=== PATIENT | male | born 1995 | race Two or more races ===

== ENCOUNTER 2024-06-02 03:30 | Emergency (ER) | payer MEDICAID ==
[~2024-06-02] VITALS: Ht 160 cm; Wt 76.0 kg
--- NOTE | 2024-06-02 03:54 | ED.PDOC ---
History of Present Illness HPI Comments 29-year-old male presents with a chief complaint of chest pain. Patient states that his chest pain is localized to his sternal region, radiates to his back. Patient mentions that he has been doing methamphetamine since 05/30/2024 and about an hour ago took a "blue pill and some powder that I was told was Percocet and Cocaine". Patient reports that he is also having lower leg weakness bilaterally. No other symptoms or modifying factors present at this time. Time Seen by MD: 03:50 Reviewed Notes: Medications, Allergies Allergies: Coded Allergies: Peanut Oil (Verified Allergy, Severe, 06/02/24) Peanut-containing Drug Products (Verified Allergy, Severe, 06/02/24) Information Source: Patient Mode of Arrival: Ambulatory Severity: Moderate Timing: Minutes Duration: Since onset Prehospital treatment: None Vital Signs Vital Signs Date Time Temp Pulse Resp B/P (MAP) Pulse Ox O2 Delivery O2 Flow Rate FiO2 06/02/24 04:41 124 06/02/24 04:01 97.7 16 140/99 (113) 99 Past Medical History PAST MEDICAL HISTORY: Denies Surgical History: Denies all surgeries Family History Family History: Reviewed,noncontributory to illness Social History Smoker: Non-Smoker Alcohol: Denies ETOH Use Drugs: Cocaine, Marijuana, Methamphetamine Lives In: Home Was a procedure done? Was a procedure done?: No EKG EKG : Pulse Rate (adult): 136 [place]: Normal Cardiac Rhythm: ST Block: None Hypertrophy: None ST: Normal X-Ray, Labs, Meds, VS Vital Signs Date Time Temp Pulse Resp B/P (MAP) Pulse Ox O2 Delivery O2 Flow Rate FiO2 06/02/24 04:41 124 06/02/24 04:01 97.7 123 16 140/99 (113) 99 06/02/24 03:54 136 06/02/24 03:45 136 Lab Test 06/02/24 04:47 06/02/24 03:55 Range/Units Troponin I High Sensitivity 13 12 </=54 ng/L White Blood Count 10.7 4.4-10.8 10^3/uL Red Blood Count 6.12 H 4.5-5.90 10^6/uL Hemoglobin 17.8 H 13.5-17.5 g/dL Hematocrit 52.6 41.0-53.0 % Mean Corpuscular Volume 85.9 80.0-100.0 fL Mean Corpuscular Hemoglobin 29.1 28.0-32.0 pg Mean Corpuscular Hemoglobin Concent 33.9 32.0-36.0 g/dL Red Cell Distribution Width 14.8 H 11.8-14.3 % Platelet Count 336 140-450 10^3/uL Mean Platelet Volume 8.3 6.9-10.8 fL Neutrophils (%) (Auto) 74.5 37.0-80.0 % Lymphocytes (%) (Auto) 16.5 10.0-50.0 % Monocytes (%) (Auto) 8.4 0.0-12.0 % Eosinophils (%) (Auto) 0.2 0.0-7.0 % Basophils (%) (Auto) 0.4 0.0-2.0 % Neutrophils # (Auto) 8.0 1.6-8.6 10 ^3/uL Lymphocytes # (Auto) 1.8 0.4-5.4 10 ^3/uL Monocytes # (Auto) 0.9 0-1.3 10 ^3/uL Eosinophils # (Auto) 0 0-0.8 10 ^3/uL Basophils # (Auto) 0 0-0.2 10 ^3/uL Nucleated Red Blood Cells 0.1 % Sodium Level 137 136-145 mmol/L Potassium Level 3.4 L 3.5-5.1 mmol/L Chloride Level 102 98-107 mmol/L Carbon Dioxide Level 19 L 20-31 mmol/L Anion Gap 16 H 5-15 Blood Urea Nitrogen 19 9-23 mg/dL Creatinine 1.06 0.700-1.30 mg/dL Glomerular Filtration Rate Calc 97 >90 mL/min BUN/Creatinine Ratio 17.9 10.0-20.0 Serum Glucose 109 H 74-106 mg/dL Calcium Level 10.9 H 8.7-10.4 mg/dL Total Bilirubin 1.4 H 0.2-1.0 mg/dL Aspartate Amino Transferase (AST) 81 H 13-40 U/L Alanine Aminotransferase (ALT) 83 H 7-40 U/L Alkaline Phosphatase 105 46-116 U/L B-Type Natriuretic Peptide 3.39 0-100 pg/mL Total Protein 8.9 H 5.7-8.2 g/dL Albumin 5.8 H 3.2-4.8 g/dL Lipase 36 12-53 U/L Plasma/Serum Blood Alcohol < 3.0 <10 mg/dL Current Medications Medications (Trade) Dose Ordered Sig/Natasha Route Start Time Stop Time Status Last Admin Sodium Chloride 1,000 ml @ 1,000 mls/hr Q1H ONCE IV 06/02/24 04:00 06/02/24 04:59 DC 06/02/24 05:19 Time of 1ST Reevaluation: 04:20 Reevaluation 1ST: Unchanged Patient Education/Counseling: Diagnosis, Treatment, Prognosis Family Education/Counseling: No Family Present Departure 1 Departure Time of Disposition: 06:12 Impression: Primary Impression: Thoracic back pain Additional Impressions: Elevated liver enzymes Polysubstance abuse Additional Instructions: ED DISCHARGE INSTRUCTIONS Instructions: Please read all instructions provided in this packet carefully. Although you have been discharged from the Emergency Department, this does not mean that you have a "clean bill of health". No definitive diagnosis for your symptoms has been made today. It is possible that you are in the process of developing a serious illness. This is why you must return to the ED without fail if any new or worsening symptoms (especially if your symptoms include chest pain, trouble breathing, abdominal pain, fever, headache, confusion, trouble seeing, or trouble walking) Avoid methamphetamine, cocaine, opiates and alcohol. Call to schedule an appointment with a new primary care provider. [phone] Dr. Ashley Hughes or Dr. Iron Goel It is also very important that you see a primary care doctor within the next 1-3 days to follow up. If you are unable to get an appointment, return to the ED for re-evaluation CHEST PAIN EDUCATION There are many things that can cause chest pain. Some are not serious and will get better on their own in a few days. But some kinds of chest pain need more testing and treatment. Your doctor may have recommended a follow-up visit in the next few days. If you are not getting better, you may need more tests or treatment. Even though your doctor has released you, you still need to watch for any problems. The doctor carefully checked you, but sometimes problems can develop later. If you have new symptoms or if your symptoms do not get better, get medical care right away. If you have worse or different chest pain or pressure that lasts more than 5 minutes or you passed out (lost consciousness), call 911 or seek other emergency help right away. A medical visit is only one step in your treatment. Even if you feel better, you still need to do what your doctor recommends, such as going to all suggested follow-up appointments and taking medicines exactly as directed. This will help you recover and help prevent future problems. How can you care for yourself at home? Rest until you feel better. Take your medicine exactly as prescribed. Call your doctor if you think you are having a problem with your medicine. Do not drive after taking a prescription pain medicine. When should you call for help? Call 911 if: You passed out (lost consciousness). You have severe difficulty breathing. You have symptoms of a heart attack. These may include: Chest pain or pressure, or a strange feeling in your chest. Sweating. Shortness of breath. Nausea or vomiting. Pain, pressure, or a strange feeling in your back, neck, jaw, or upper belly or in one or both shoulders or arms. Lightheadedness or sudden weakness. A fast or irregular heartbeat. After you call 911, the dough mixer operator may tell you to chew 1 adult-strength or 2 to 4 low-dose aspirin. Wait for an ambulance. Do not try to drive yourself. Call your doctor now or seek immediate medical care if: You have any trouble breathing. You have new or different chest pain. You are dizzy or lightheaded, or you feel like you may faint. Watch closely for changes in your health, and be sure to contact your doctor if you do not get better as expected. Current as of: January 30, 2024 Author: Haylee JobConvoALEJANDRA Staff? LIVER FUNCTION TESTS EDUCATION: What does it mean to have elevated liver enzymes? If you have high levels of liver enzymes in your blood, you have elevated liver enzymes. High liver enzyme levels may be temporary, or they may be a sign of a medical condition like hepatitis or liver disease. Certain medications can also cause elevated liver enzymes. What are liver enzymes? Liver enzymes are proteins that speed up chemical reactions in your body. These chemical reactions include producing bile and substances that help your blood clot, breaking down food and toxins, and fighting infection. Common liver enzymes include: Alkaline phosphatase (ALP). Alanine transaminase (ALT). Aspartate transaminase (AST). Gamma-glutamyl transferase (GGT). If your liver is injured, it releases enzymes into your bloodstream (most commonly ALT or AST). Why does a healthcare provider check liver enzymes? Your healthcare provider may check your liver enzyme levels with a liver function test (LFT) or liver panel. A liver function test is a type of blood test. Your provider may order an LFT during a regular checkup if youre at risk for liver injury or disease or if you have symptoms of liver damage. Possible Causes What causes elevated liver enzymes? Liver diseases, medical conditions, medications and infections can cause elevated liver enzymes. What are the risk factors for elevated liver enzymes? Factors that put you at risk for elevated liver enzymes include: Alcohol use. Certain medications, herbs and vitamin supplements. Diabetes. Family history of liver disease. Hepatitis or exposure to hepatitis. What are the symptoms of elevated liver enzymes? Most people with elevated liver enzymes dont have symptoms. If liver damage is the cause of elevated liver enzymes, you may have symptoms such as: Abdominal (stomach) pain. Dark urine (pee). Fatigue (feeling tired). Itching. Jaundice (yellowing of your skin or eyes). Light-colored stools (poop). Loss of appetite. Nausea and vomiting. Care and Treatment Elevated liver enzymes have a variety of causes, including liver disease and medication. Elevated liver enzymes may also be temporary. If your blood test shows high levels of liver enzymes, talk with your provider. Theyll work to figure out the cause. (From [facility]) Comments Patient reports feeling improved, back to baseline. No further chest pain or upper back pain. Critical Care Note Critical Care Time?: No Stability Stability form required: No I personally scribed for MARSHA SCHMIDT MD ([email or web address]) on 06/02/24 at 03:54. Electronically submitted by Nemesio Victoria ([email or web address]). MARSHA SCHMIDT MD Jun 02, 2024 03:54
[2024-06-02 04:22] LABS: Basophils # (auto) 0 10 ^3/uL (0-0.2); Basophils % (auto) 0.4 % (0.0-2.0); Eosinophils # (auto) 0 10 ^3/uL (0-0.8); Eosinophils % (auto) 0.2 % (0.0-7.0); Lymphocytes # (auto) 1.8 10 ^3/uL (0.4-5.4); Mean Corpuscular Volume 85.9 fL (80.0-100.0); Platelet Count (auto) 336 10^3/uL (140-450); Red Cell Distribution Width 14.8 % (11.8-14.3)
[2024-06-02 04:24] LABS: Hematocrit 52.6 % (41.0-53.0); Hemoglobin 17.8 g/dL (13.5-17.5); Lymphocytes % (auto) 16.5 % (10.0-50.0); Mean Corpuscular Hemoglobin 29.1 pg (28.0-32.0); Mean Corpuscular Hgb Conc. 33.9 g/dL (32.0-36.0); Monocytes # (auto) 0.9 10 ^3/uL (0-1.3); Monocytes % (auto) 8.4 % (0.0-12.0); Neutrophils % (auto) 74.5 % (37.0-80.0); Nucleated Red Blood Cells % 0.1 %; Red Blood Cells 6.12 10^6/uL (4.5-5.90); White Blood Cell 10.7 10^3/uL (4.4-10.8)
[2024-06-02 04:41] LABS: Alkaline Phosphatase 105 U/L (46-116); Anion Gap 16 (5-15); BUN/Creatinine Ratio 17.9 (10.0-20.0); Blood Urea Nitrogen 19 mg/dL (9-23); Chloride 102 mmol/L (98-107); Lipase 36 U/L (12-53); Sodium 137 mmol/L (136-145)
--- NOTE | 2024-06-02 04:42 | ECG ---
[facility] Test Date: 2024-06-02 Test Time: 04:41:26 Pat Name: ERIK RASCON Department: ED Room: Gender: M [place]: : 1995 Requested By: MARSHA SCHMIDT Order Number: [id number] Reading MD: Tray Rascon Measurements Intervals [place] Rate: 124 P: 68 W[place]: 146 QRS: 76 QRSD: 73 T: 0 QT: 294 QTc: 423 Interpretive Statements Sinus tachycardia Electronically Signed On 06-04-2024 16:12:48 PST by Tray Rascon Please click the below link to view image of tracing.
[2024-06-02 04:47] LABS: Alanine Aminotransferase 83 U/L (7-40); Albumin 5.8 g/dL (3.2-4.8); Aspartate Aminotransferase 81 U/L (13-40); Bilirubin, Total 1.4 mg/dL (0.2-1.0); Calcium 10.9 mg/dL (8.7-10.4); Carbon Dioxide 19 mmol/L (20-31); Glucose 109 mg/dL (74-106); Potassium 3.4 mmol/L (3.5-5.1); Total Protein 8.9 g/dL (5.7-8.2)
[2024-06-02] MEDS: IOHEXOL 350 MG/ML 100ML IJ ONE (04:59)
[2024-06-02 05:02] LABS: Blood Alcohol < 3.0 mg/dL (<10)
[2024-06-02] MEDS ORDERED: POTASSIUM CHL 20MEQ/100ML 100 ML IV ONE (05:15)
[2024-06-02] MEDS: LORazepam 2MG/ML-1ML VIAL IV ONE (05:19)
[2024-06-02] MEDS: SODIUM CHLORIDE 0.9% 1,000 ML IV ONE (05:19)
--- NOTE | 2024-06-02 05:47 | DVH ---
INDICATION: Rule out aortic dissection TECHNIQUE: Multidetector CTA of the chest was performed of the chest with 100 cc of omnipaque 350 int ravenous contrast. PULMONARY ANGIOGRAPHY PROTOCOL was utilized using a bolus-tracking technique cente red on the main pulmonary artery. Coronal and sagittal multiplanar and MIP reformats were performed. Radiation Dose Information: CT Dose: CTDI volume is 12.58 mGy. Dose-length product is 466.97 mGy*cm The dose indicators for CT are the volume Computed Tomography (CT) Dose Index (CTDIvol) and the Dose Length Product (DLP), and are measured in units of mGy and mGy-cm, respectively. These indicators are not patient dose, but values generated from the CT scanner acquisition factors. The report includes radiation exposure data for exposures received during this examination. Findings: Pulmonary artery: Normal caliber of the pulmonary artery. There is linear streak artifact from motio n of the contrast bolus in the superior vena cava limiting evaluation. No central, lobar or segmental pulmonary embolism. Lower neck: Normal thyroid. Lungs: No focal consolidation, pulmonary mass, or suspicious pulmonary nodule. Pleura: No pleural effusion or significant pneumothorax. Central airways: Patent. Esophagus: Unremarkable. Heart/Vascular Structures: Normal heart size. Normal caliber and enhancement of the aorta. Lymph Nodes: No adenopathy Musculoskeletal: No acute osseous abnormality. Upper abdomen: Limited portions of the upper abdomen are unremarkable. IMPRESSION: 1. No thoracic aortic dissection or pulmonary embolism. 2. No acute intrathoracic abnormality.
[2024-06-02] MEDS: POTASSIUM CHL 20 Meq TABLET PO ONE (06:03)
[2024-06-02 06:24] VITALS: BP 140/99; PULSE 115; RESP 18; TEMP 97.9; O2SAT 99
--- NOTE | 2024-06-04 10:37 | ECG ---
[facility] Test Date: 2024-06-02 Test Time: 03:45:28 Pat Name: ERIK RASCON Department: ED Room: Gender: M Dressmaker Garment Fitter: : 1995 Requested By: MARSHA SCHMIDT Order Number: [id number] Reading MD: Tray Rascon Measurements Intervals [place] Rate: 136 P: 77 DC: 129 QRS: 89 QRSD: 79 T: -7 QT: 299 QTc: 450 Interpretive Statements Sinus tachycardia Borderline T abnormalities, inferior leads Borderline ST elevation, lateral leads Electronically Signed On 06-04-2024 16:12:47 PST by Tray Rascon Please click the below link to view image of tracing.
== END 2024-06-02 06:25 | disposition home or self-care (01) ==
LOC: ER 03:30
DX: M54.6 Pain in thoracic spine (principal); R74.8 Abnormal levels of other serum enzymes; R06.02 Shortness of breath; F19.10 Other psychoactive substance abuse, uncomplicated; Z91.010 Allergy to peanuts; Z88.8 Allergy status to other drugs, medicaments and biological substances
CPT/HCPCS: 36415; 71275; 80053; 80320; 83690; 83880; 84484; 85025; 93005; 96360; 99285; J7030; Q9967

== ENCOUNTER 2024-07-24 13:29 | Emergency (ER) | payer MEDICAID ==
[~2024-07-24] VITALS: Ht 162.6 cm; Wt 77.2 kg
[2024-07-24 13:48] VITALS: BP 130/52; PULSE 80; RESP 20; O2SAT 94
--- NOTE | 2024-07-24 13:59 | ED.PDOC ---
GI ASSESSMENT HPI Comments 29y who presents to the ED for chief complaint of abdominal pain. Pt states he has been having epigastric abdominal pain for the past 3 days. Pt states the pain is non-radiating, constant, achy in nature, with no associated exacerbating or relieving factors. Pt has associated nausea and vomiting but otherwise denies diarrhea, fever, cough, chills, headache or dizziness. Pt otherwise states he ate cup noodles and states he has been having symptoms since. Pt has noted history of marijuana, meth and cocaine use. Pt otherwise denies any other symptoms at this time. Chief Complaint: Abdominal Pain Time Seen by MD: 13:56 Reviewed Notes: Nurses Notes, Medications, Allergies (See list ) Allergies: Coded Allergies: Peanut Oil (Verified Allergy, Severe, 06/02/24) Peanut-containing Drug Products (Verified Allergy, Severe, 06/02/24) Information Source: Patient Mode of Arrival: Ambulatory Brought in by: self Timing: Hours, Days Duration: Since onset Prehospital treatment: None Quality: Aching Vomitus: Food Particles Stool: Normal Severity: Moderate Recent: Possible spoiled food Recent Hx of: None Pain Location: Epigastric Modifying Factors: Food Associated sign and symptoms: Nausea, Vomiting Past Medical History PAST MEDICAL HISTORY: Denies Surgical History: Denies all surgeries Family History Family History: Reviewed,noncontributory to illness Social History Smoker: Non-Smoker Alcohol: Denies ETOH Use Drugs: Cocaine, Marijuana, Methamphetamine Lives In: Home Constitutional: denies: chills, diaphoresis, fatigue, fever, malaise, sweats, weakness, others EENTM: denies: blurred vision, double vision, ear bleeding, ear discharge, ear drainage, ear pain, ear ringing, eye pain, eye redness, hearing loss, mouth pain, mouth swelling, nasal discharge, nose bleeding, nose congestion, nose pain, photophobia, tearing, throat pain, throat swelling, voice changes, others Respiratory: denies: cough, hemoptysis, orthopnea, SOB at rest, shortness of b reath, SOB with excertion, stridor, wheezing, others Cardiovascular: denies: chest pain, dizzy spells, diaphoresis, Dyspnea on exertion, edema, irregular heart beat, left arm pain, lightheadedness, palpitations, PND, syncope, others Gastrointestinal: reports: abdominal pain, nausea, vomiting; denies: abdomen distended, blood streaked bowels, constipated, diarrhea, dysphagia, difficulty swallowing, hematemesis, melena, poor appetite, poor fluid intake, rectal bleeding, rectal pain, others Genitourinary: denies: burning, dysuria, flank pain, frequency, hematuria, incontinence, penile discharge, penile sore, pain, testicle pain, testicle swelling, urgency, others Neurological: denies: dizziness, fainting, headache, left sided numbness, left sided weakness, numbness, paresthesia, pre-existing deficit, right sided numbness, right sided weakness, seizure, speech problems, tingling, tremors, weakness, others Musculoskeletal: denies: back pain, gout, joint pain, joint swelling, muscle pain, muscle stiffness, neck pain, others Integumetry: denies: bruises, change in color, change in hair/nails, dryness, laceration, lesions, lumps, rash, wounds, others Allergic/Immunocompromised: denies: Difficulty Healing, Frequent Infections, Hives, Itching, others Hematologic/Lymphatic: denies: anemia, blood clots, easy bleeding, easy bruising, swollen glands, others Endocrine: denies: excessive hunger, excessive sweating, excessive thirst, excessive urination, flushing, intolerance to cold, intolerance to heat, unexplained weight gain, unexplained weight loss, others Psychiatric: denies: anxiety, bipolar disorder, depression, hopeless, panic disorder, schizophrenia, sleepless, suicidal, others All Other Systems: Reviewed and Negative Physical Exam General Appearance: Mild Distress HEENT: Normal ENT Inspection, Pharynx Normal, TMs Normal Neck: Full Range of Motion, Non-Tender, Normal, Normal Inspection Respiratory: Chest Non-Tender, Lungs Clear, No Accessory Muscle Use, No Respiratory Distress, Normal Breath Sounds Cardiovascular: No Edema, No JVD, No Murmur, No Gallop, Normal Peripheral Pulses, Regular Rate/Rhythm Breast Exam: Deferred Gastrointestinal: Epigastric, No Organomegaly, No Pulsatile Mass, Normal Bowel Sounds, Soft, Tenderness Genitalia: Deferred Pelvic: Deferred Rectal: Deferred Extremities: No calf tenderness, Normal capillary refill, Normal inspection, Normal range of motion, Non-tender, No pedal edema Musculoskeletal : Apperance: Normal Neurologic: Alert, shoemaking finisher II-XII nml as Tested, No Motor Deficits, Normal Affect, Normal Mood, No Sensory Deficits Cerebellar Function: Normal Reflexes: Normal Skin: Dry, Normal Color, Warm Lymphatic: No Adenopathy Was a procedure done? Was a procedure done?: No GI differential Dx Differential Diagnosis: Gastritis/PUD, Gastroenteritis, Electrolyte Imbalance, Food Poisoning, Bacterial, Viral Other Differential Diagnosis drug use, cyclic vomiting syndrome, X-Ray, Labs, Meds, VS Vital Signs Date Time Temp Pulse Resp B/P (MAP) Pulse Ox O2 Delivery O2 Flow Rate FiO2 07/24/24 13:48 97.4 80 20 130/52 (78) 94 Lab Test 07/24/24 14:08 Range/Units White Blood Count 9.0 4.4-10.8 10^3/uL Red Blood Count 5.30 4.5-5.90 10^6/uL Hemoglobin 15.3 13.5-17.5 g/dL Hematocrit 44.4 41.0-53.0 % Mean Corpuscular Volume 83.9 80.0-100.0 fL Mean Corpuscular Hemoglobin 29.0 28.0-32.0 pg Mean Corpuscular Hemoglobin Concent 34.5 32.0-36.0 g/dL Red Cell Distribution Width 13.6 11.8-14.3 % Platelet Count 285 140-450 10^3/uL Mean Platelet Volume 8.9 6.9-10.8 fL Neutrophils (%) (Auto) 45.4 37.0-80.0 % Lymphocytes (%) (Auto) 43.9 10.0-50.0 % Monocytes (%) (Auto) 7.8 0.0-12.0 % Eosinophils (%) (Auto) 2.2 0.0-7.0 % Basophils (%) (Auto) 0.7 0.0-2.0 % Neutrophils # (Auto) 4.1 1.6-8.6 10 ^3/uL Lymphocytes # (Auto) 4.0 0.4-5.4 10 ^3/uL Monocytes # (Auto) 0.7 0-1.3 10 ^3/uL Eosinophils # (Auto) 0.2 0-0.8 10 ^3/uL Basophils # (Auto) 0.1 0-0.2 10 ^3/uL Nucleated Red Blood Cells 0.1 % Sodium Level 145 136-145 mmol/L Potassium Level 3.5 3.5-5.1 mmol/L Chloride Level 108 H 98-107 mmol/L Carbon Dioxide Level 29 20-31 mmol/L Anion Gap 8 5-15 Blood Urea Nitrogen 10 9-23 mg/dL Creatinine 0.85 0.700-1.30 mg/dL Glomerular Filtration Rate Calc 121 >90 mL/min BUN/Creatinine Ratio 11.8 10.0-20.0 Serum Glucose 90 74-106 mg/dL Calcium Level 9.1 8.7-10.4 mg/dL Total Bilirubin 0.4 0.2-1.0 mg/dL Aspartate Amino Transferase (AST) 24 13-40 U/L Alanine Aminotransferase (ALT) 56 H 7-40 U/L Alkaline Phosphatase 83 46-116 U/L Total Protein 7.2 5.7-8.2 g/dL Albumin 4.7 3.2-4.8 g/dL Lipase 45 12-53 U/L The CBC is within normal limits The chemistry panel is within normal limits We did order the urine test but the patient has now eloped from the department's before given the urine We suspect that the patient may have been using marijuana and it was causing his symptoms but unfortunately the patient did not give us a urine sample so the patient has been eloped Time of 1ST Reevaluation: 14:30 Reevaluation 1ST: Unchanged Patient Education/Counseling: Diagnosis, Treatment, Prognosis, Need For Follow Up Family Education/Counseling: No Family Present Departure 1 Departure Time of Disposition: 16:35 Impression: Primary Impression: Polysubstance abuse Additional Impressions: Acute vomiting Gastritis Qualified Codes: K29.00 - Acute gastritis without bleeding Disposition: 01 HOME / SELF CARE / HOMELESS Condition: Fair Critical Care Note Critical Care Time?: No Stability Stability form required: No Heart Score Heart Score: Heart Score Response (Comments) Value History N/A 0 EKG N/A 0 Age N/A 0 Risk Factors N/A 0 Troponin N/A 0 Total 0 I personally scribed for GARRY GARNER MD ([email or web address]) on 07/24/24 at 13:59. Electronically submitted by Miguelina Lainez ([email or web address]). GARRY GARNER MD Jul 24, 2024 13:59
[2024-07-24] MEDS ORDERED: SODIUM CHLORIDE 0.9% 1,000 ML IVB ONE (14:00)
[2024-07-24] MEDS ORDERED: PANTOPRAZOLE 40 MG/10 ML VIAL INJ IV ONE (14:00)
[2024-07-24] MEDS ORDERED: PROCHLORPERAZINE EDISYLATE 5 MG/ML 2ML VIAL IV ONE (14:00)
[2024-07-24 14:20] LABS: Basophils # (auto) 0.1 10 ^3/uL (0-0.2); Basophils % (auto) 0.7 % (0.0-2.0); Eosinophils # (auto) 0.2 10 ^3/uL (0-0.8); Eosinophils % (auto) 2.2 % (0.0-7.0); Hematocrit 44.4 % (41.0-53.0); Hemoglobin 15.3 g/dL (13.5-17.5); Lymphocytes % (auto) 43.9 % (10.0-50.0); Mean Corpuscular Hgb Conc. 34.5 g/dL (32.0-36.0); Mean Corpuscular Volume 83.9 fL (80.0-100.0); Monocytes # (auto) 0.7 10 ^3/uL (0-1.3); Monocytes % (auto) 7.8 % (0.0-12.0); Neutrophils # (auto) 4.1 10 ^3/uL (1.6-8.6); Neutrophils % (auto) 45.4 % (37.0-80.0); Nucleated Red Blood Cells % 0.1 %; Platelet Count (auto) 285 10^3/uL (140-450); Red Cell Distribution Width 13.6 % (11.8-14.3)
[2024-07-24 14:39] LABS: Albumin 4.7 g/dL (3.2-4.8); Alkaline Phosphatase 83 U/L (46-116); Anion Gap 8 (5-15); Aspartate Aminotransferase 24 U/L (13-40); BUN/Creatinine Ratio 11.8 (10.0-20.0); Bilirubin, Total 0.4 mg/dL (0.2-1.0); Blood Urea Nitrogen 10 mg/dL (9-23); Calcium 9.1 mg/dL (8.7-10.4); Carbon Dioxide 29 mmol/L (20-31); Glucose 90 mg/dL (74-106); Total Protein 7.2 g/dL (5.7-8.2)
[2024-07-24 14:44] LABS: Alanine Aminotransferase 56 U/L (7-40); Chloride 108 mmol/L (98-107); Potassium 3.5 mmol/L (3.5-5.1); Sodium 145 mmol/L (136-145)
[2024-07-24 14:55] LABS: Lipase 45 U/L (12-53)
== END 2024-07-24 16:59 | disposition left against medical advice (07) ==
LOC: ER 13:29
DX: K29.00 Acute gastritis without bleeding (principal); F19.10 Other psychoactive substance abuse, uncomplicated; F15.90 Other stimulant use, unspecified, uncomplicated; Z91.010 Allergy to peanuts
CPT/HCPCS: 36415; 80053; 83690; 85025